=== PATIENT | female | born 1945 | race Hispanic/Latino ===

== ENCOUNTER → 2018-11-14 | Outpatient (CLI) | payer MEDICARE | END | disposition home or self-care (01) | LOC: SHCH 09:03 | PROVIDERS: ATTEND Internal Medicine Cardiovascular Disease | DX: I11.9 Hypertensive heart disease without heart failure (principal); I08.0 Rheumatic disorders of both mitral and aortic valves; I65.23 Occlusion and stenosis of bilateral carotid arteries | CPT/HCPCS: 93306; 93880 ==

== ENCOUNTER → 2020-11-12 | Outpatient (CLI) | payer MEDICARE | END | disposition home or self-care (01) | LOC: SHCH 12:00 | PROVIDERS: ATTEND Internal Medicine Cardiovascular Disease | DX: I73.9 Peripheral vascular disease, unspecified (principal) | CPT/HCPCS: 93925 ==

== ENCOUNTER → 2023-04-16 | Outpatient (CLI) | payer MEDICARE ==
[~2023-04-16] MED LIST: AEC81 PO; ATOR10 PO; BUSP15TA3 PO; CETI-89 PO; LISI5TAB21 PO; METF-526 PO; METO5TAB2 PO; OMEP20CA12 PO
== END | disposition home or self-care (01) ==
LOC: RAH 08:51
PROVIDERS: ATTEND Internal Medicine Interventional Cardiology
DX: R06.09 Other forms of dyspnea (principal)
CPT/HCPCS: 71046